=== PATIENT | male | born 1960 | race Hispanic/Latino ===

== ENCOUNTER 2019-05-09 16:08 | Emergency (ER) | payer OTHER ==
--- NOTE | 2019-05-09 16:23 | Event Note ---
ED Screening Note Date of service: 05/09/19 Time: 16:20 ED Screening Note: Patient with dizziness that is getting worst sibce . denies jheadache or head injurty denies cp or sob. PMHX HTN< GERDM HH, BPH Aand oriented x3 NAD This initial assessment/diagnostic orders/clinical plan/treatment(s) is/are subject to change based on patients health status, clinical progression and re- assessment by fellow clinical providers in the ED. Further treatment and workup at subsequent clinical providers discretion. Patient/guardian urged not to elope from the ED as their condition may be serious if not clinically assessed and managed. Initial orders include:
[2019-05-09 16:44] LABS: Basophils % (Auto) 0.5 % (0.0-1.8); Eosinophils # (Auto) 0.1 K/mm3 (0.0-0.4); Eosinophils % (Auto) 0.9 % (0.0-4.3); Hematocrit 41.6 % (35.5-45.6); Hemoglobin 14.5 gm/dl (11.8-15.2); Lymphocytes # (Auto) 1.5 K/mm3 (1.2-5.4); Lymphocytes % (Auto) 24.3 % (13.4-35.0); Mean Corpuscular HGB Conc 35 % (32-34); Mean Corpuscular Volume 86 fl (84-94); Monocytes # (Auto) 0.6 K/mm3 (0.0-0.8); Monocytes % (Auto) 9.4 % (0.0-7.3); Platelet Count 162 K/mm3 (140-440); Red Blood Count 4.86 M/mm3 (3.65-5.03); Red Cell Distribution Width 13.4 % (13.2-15.2)
[2019-05-09 17:00] LABS: Alanine Aminotransferase 17 units/L (7-56); BUN/Creatinine Ratio 21; Blood Urea Nitrogen 23 mg/dL (9-20); Calcium 8.9 mg/dL (8.4-10.2); Hemolysis Index 12
--- NOTE | 2019-05-09 17:34 | Cat Scan Report ---
CT BRAIN: 05/09/2019 INDICATION / CLINICAL INFORMATION: left-sided headache with numbness and tingling. COMPARISON: None available. FINDINGS: BRAIN/INTRACRANIAL STRUCTURES: Unenhanced CT images of the brain were obtained. There is no evidence of acute abnormality. Ventricles and sulci are normal in size and shape. There is no evidence of ischemic injury, hemorrhage, or mass. There are no abnormal extra-axial fluid collections. Atherosclerotic vascular calcifications are present in the distal internal carotid arteries and verte bral arteries. EXTRACRANIAL STRUCTURES: Unremarkable. IMPRESSION: No acute abnormality. All CT scans at this location are performed using dose reduction to ALARA by means of automated expos ure control. Signer Name: Phan Barron MD Signed: 05/09/2019 5:29 PM Workstation Name: [id number]
--- NOTE | 2019-05-09 17:36 | Emergency Department Report ---
ED Dizziness HPI - General Chief Complaint: Dizziness Stated Complaint: LIGHT HEADED/DIZZY Time Seen by Provider: 05/09/19 16:20 Source: patient Mode of arrival: Ambulatory Limitations: No Limitations - History of Present Illness Initial Comments: Patient is 58 years old male with history of hypertension. Patient presented to the emergency room for evaluation of dizziness and lightheadedness for the last 3 days. Patient stated that his symptoms is related to position. Patient denied any ataxia. Patient also denied any visual changes. Patient stated that he did not have much rest the last few days and last night he slept only for 2 hours because he spend the night with his daughter in the ER. She denied any weakness, numbness or tingling sensation. He also denied any bowel or bladder incontinence. Patient denied chest pain, shortness of breath, nausea or vomiting. MD Complaint: dizziness, lightheadedness -: days(s) (3) Timing: gradual onset Description: lightheadedness History of Same: No History of Trauma: No Severity: moderate Improves With: remaining still Worsens With: position Associated Symptoms: denies other symptoms ED Review of Systems ROS: Stated complaint: LIGHT HEADED/DIZZY Other details as noted in HPI Comment: All other systems reviewed and negative Constitutional: denies: chills, fever Respiratory: denies: cough, shortness of breath, SOB with exertion, wheezing Cardiovascular: denies: chest pain, palpitations Gastrointestinal: denies: abdominal pain, nausea, vomiting Musculoskeletal: denies: back pain Neurological: denies: headache, weakness, numbness, paresthesias, confusion ED Past Medical Hx - Social History Smoking Status: Never Smoker Substance Use Type: None ED Physical Exam - General Limitations: No Limitations General appearance: alert, in no apparent distress - Head Head exam: Present: atraumatic, normocephalic, normal inspection - Eye Eye exam: Present: normal appearance - ENT ENT exam: Present: normal exam, normal orophraynx, mucous membranes moist - Neck Neck exam: Present: normal inspection, full ROM. Absent: tenderness, meningismus, lymphadenopathy, thyromegaly - Respiratory Respiratory exam: Present: normal lung sounds bilaterally - Cardiovascular Cardiovascular Exam: Present: regular rate, normal rhythm, normal heart sounds - GI/Abdominal GI/Abdominal exam: Present: soft, normal bowel sounds. Absent: distended, tenderness, guarding, rebound, rigid, organomegaly, mass, bruit, pulsatile mass, hernia - Extremities Exam Extremities exam: Present: normal inspection, full ROM, normal capillary refill. Absent: pedal edema, calf tenderness - Back Exam Back exam: Present: normal inspection, full ROM. Absent: CVA tenderness (R), CVA tenderness (L), muscle spasm, paraspinal tenderness, vertebral tenderness - Neurological Exam Neurological exam: Present: alert, oriented X3, CN II-XII intact - Psychiatric Psychiatric exam: Present: normal mood - Skin Skin exam: Present: warm, intact, normal color ED Course Vital Signs 05/09/19 05/09/19 05/09/19 16:16 16:33 16:45 Temperature 97.9 F Pulse Rate 63 62 58 L Respiratory 18 12 16 Rate Blood Pressure 145/82 Blood Pressure 140/75 [Left] O2 Sat by Pulse 93 95 Oximetry 05/09/19 05/09/19 05/09/19 17:05 17:15 17:22 Temperature Pulse Rate Respiratory 16 Rate Blood Pressure 145/82 176/103 Blood Pressure [Left] O2 Sat by Pulse 97 93 Oximetry 05/09/19 05/09/19 17:31 17:45 Temperature Pulse Rate Respiratory Rate Blood Pressure 145/90 177/96 Blood Pressure [Left] O2 Sat by Pulse 94 93 Oximetry ED Medical Decision Making - Lab Data Result diagrams: 05/09/19 16:28 05/09/19 16:28 - EKG Data -: EKG Interpreted by Nh EKG shows normal: sinus rhythm Rate: normal - EKG Data Interpretation: no acute changes 05/09/19 18:51 Right bundle branch block. Patient stated that this is chronic. - Radiology Data Radiology results: report reviewed - Medical Decision Making Patient is 58 years old male with history of hypertension. Patient presented to the emergency room for evaluation of dizziness and lightheadedness for the last 3 days. Patient stated that his symptoms is related to position. Patient denied any ataxia. Patient also denied any visual changes. Patient stated that he did not have much rest the last few days and last night he slept only for 2 hours because he spend the night with his daughter in the ER. She denied any weakness, numbness or tingling sensation. He also denied any bowel or bladder incontinence. Patient denied chest pain, shortness of breath, nausea or vomiting. Patient labs reviewed and is unremarkable. CT brain is negative for acute finding. D-dimer is negative. Patient is and stated that his symptoms seem most likely related to not having enough sleep recently. Patient advised to follow-up with his primary care physician in the next 2-3 days and to return to the ER if symptoms are not improved. Critical care attestation.: If time is entered above; I have spent that time in minutes in the direct care o f this critically ill patient, excluding procedure time. ED Disposition Clinical Impression: Dizziness Disposition: DC-01 TO HOME OR SELFCARE Is pt being admited?: No Condition: Stable Instructions: Dizziness (ED), Lightheadedness (ED) Referrals: PRIMARY CARE, [Referring] - 3-5 Days
[2019-05-09 17:48] VITALS: BP 177/96
[2019-05-09 18:23] LABS: INR 0.99 (0.87-1.13)
[2019-05-09 18:24] LABS: Partial Thromboplastin Time 27.9 Sec. (24.2-36.6)
== END 2019-05-09 19:12 | disposition home or self-care (01) ==
LOC: ED 16:08
DX: R42 Dizziness and giddiness (principal)
CPT/HCPCS: 36415; 70450; 80053; 83880; 85025; 85379; 85610; 85730; 93005; 93010